=== PATIENT | male | born 1940 | race Caucasian/White ===

== ENCOUNTER 2018-12-17 14:20 | Emergency (ER) | payer OTHER ==
[~2018-12-17] VITALS: Ht 167.6 cm; Wt 76.7 kg
[2018-12-17 14:40] VITALS: BP 162/74
== END 2018-12-17 15:42 | disposition home or self-care (01) ==
LOC: EDBD 14:20 → ER 14:20
DX: S00.83XA Contusion of other part of head, initial encounter (principal); J44.9 Chronic obstructive pulmonary disease, unspecified; V09.9XXA Pedestrian injured in unspecified transport accident, initial encounter; Y93.89 Activity, other specified; Y92.89 Other specified places as the place of occurrence of the external cause; Y99.8 Other external cause status
CPT/HCPCS: 70450

== ENCOUNTER 2021-02-25 07:44 | Emergency (ER) | payer OTHER ==
[~2021-02-25] VITALS: Ht 167.6 cm; Wt 71.2 kg
[2021-02-25 08:57] LABS: Basophils # (auto) 0 10 ^3/uL (0-0.2); Basophils % (auto) 0.4 % (0.0-2.0); Eosinophils # (auto) 0 10 ^3/uL (0-0.8); Hematocrit 40.4 % (41.0-53.0); Hemoglobin 13.8 g/dL (13.5-17.5); Lymphocytes % (auto) 16.1 % (10.0-50.0); Mean Corpuscular Hemoglobin 31.5 pg (28.0-32.0); Mean Corpuscular Hgb Conc. 34.1 g/dL (32.0-36.0); Mean Corpuscular Volume 92.3 fL (80.0-100.0); Monocytes # (auto) 0.7 10 ^3/uL (0-1.3); Monocytes % (auto) 12.4 % (0.0-12.0); Neutrophils # (auto) 4.3 10 ^3/uL (1.6-8.6); Neutrophils % (auto) 71.1 % (37.0-80.0); Nucleated Red Blood Cells % 0.1 %; Red Blood Cells 4.38 10^6/uL (4.5-5.90); Red Cell Distribution Width 13.4 % (11.8-14.3)
[2021-02-25 09:23] LABS: Albumin 3.3 g/dL (3.4-5.0); Anion Gap 6 (5-15); Blood Urea Nitrogen 14 mg/dL (7-18); Calcium 8.5 mg/dL (8.5-10.1); Carbon Dioxide 24 mmol/L (21-32); Chloride 106 mmol/L (98-107); Glucose 100 mg/dL (74-106); Magnesium 2.2 mg/dL (1.6-2.6); Potassium 3.6 mmol/L (3.5-5.1); Sodium 136 mmol/L (136-145)
[2021-02-25 09:29] LABS: Alanine Aminotransferase 27 U/L (16-61); Alkaline Phosphatase 99 U/L (45-117); Aspartate Aminotransferase 39 U/L (15-37); BUN/Creatinine Ratio 14.9; Bilirubin, Total 2.1 mg/dL (0.2-1.0); GFR African American 100 mL/min; GFR Non-African American 82 mL/min; Total Protein 7.9 g/dL (6.4-8.2)
[2021-02-25 10:35] LABS: Urine Bacteria FEW /hpf (None Seen); Urine Blood 1+ /uL (Negative); Urine Mucus FEW (None Seen); Urine Specific Gravity 1.027 (1.001-1.035); Urine WBC 3 /hpf (0 - 3)
[2021-02-25] MEDS ORDERED: IPRATROPIUM BROM 0.5 MG/2.5ML INH SOL NEB ONE (12:00)
[2021-02-25] MEDS ORDERED: ALBUTEROL SULF 2.5 MG/0.5ML(0.5%) NEB SOLN NEB ONE (12:00)
[2021-02-25 13:02] VITALS: BP 115/70
== END 2021-02-25 13:04 | disposition home or self-care (01) ==
LOC: ER 07:44
DX: R91.1 Solitary pulmonary nodule (principal); R05 Cough; I10 Essential (primary) hypertension; J44.9 Chronic obstructive pulmonary disease, unspecified; I25.10 Atherosclerotic heart disease of native coronary artery without angina pectoris; I48.91 Unspecified atrial fibrillation; Z90.49 Acquired absence of other specified parts of digestive tract; Z90.89 Acquired absence of other organs; Z87.891 Personal history of nicotine dependence; Z20.822 Contact with and (suspected) exposure to COVID-19
CPT/HCPCS: 36415; 71045; 80053; 81001; 83735; 83880; 84484; 85025; 87426; 93005; 94640; 99285; J7644

== ENCOUNTER 2024-08-26 05:53 | Inpatient (IN) | payer OTHER ==
[~2024-08-26] VITALS: Ht 167.6 cm; Wt 74.3 kg
[2024-08-26] VITALS (9 sets, daily range): BP systolic 123–152; BP diastolic 59–77; PULSE 56–122; RESP 17–29; TEMP 97.8–97.9; O2SAT 92–98
--- NOTE | 2024-08-26 06:46 | ED.PDOC ---
SOB-HPI HPI Comments 84 year old male brought in by EMS presents to the ED with a chief complaint of shortness of breath onset yesterday. Patient states he began experiencing shortness of breath as well as a productive cough, sore throat and noticed it worsened today. Prior to EMS arrival patient used albuterol inhaler with no relief of symptoms. Upon EMS arrival, patient's O2 sat was 87%, breathing treatment was given, O2 sat improved to 97% and after treatment was done O2 was 89%. Patient was placed on 2L and O2 improved on 91% with a temperature of 99.8 F. PMHx of HTN, COPD, CAD, afib. Denies headache, nausea, vomiting, diarrhea, abdominal pain, dizziness, blurry vision. No other symptoms or modifying factors present at this time. Chief Complaint: Shortness of Breath Time Seen by MD: 06:22 Reviewed notes: Medications, Allergies Information Source: Patient, Emergency Med Personnel Mode of Arrival: EMS Severity: Moderate Timing: Days Duration: Since onset Context: At Rest PE Risk Factors: None History of: COPD Prehospital treatment: Oxygen (2L), Treatment (albuterol) Modifying Factors: Nothing Associated Signs and Symptoms: Cough Radiation: No Radiation If cough with SOB: Productive Past Medical History PAST MEDICAL HISTORY: AFIB, CAD, COPD, HTN Surgical History: Appendectomy, Cholecystectomy, Tonsillectomy Family History Family History: Reviewed,noncontributory to illness Social History Smoker: Non-Smoker, Quit Greater Than 1 Year Alcohol: Denies ETOH Use Drugs: Denies Drug Use Lives In: Home Constitutional: denies: chills, diaphoresis, fatigue, fever, malaise, sweats, weakness, others EENTM: denies: blurred vision, double vision, ear bleeding, ear discharge, ear drainage, ear pain, ear ringing, eye pain, eye redness, hearing loss, mouth pain, mouth swelling, nasal discharge, nose bleeding, nose congestion, nose pain, photophobia, tearing, throat pain, throat swelling, voice changes, others Respiratory: reports: cough, shortness of breath; denies: hemoptysis, orthopnea, SOB at rest, SOB with excertion, stridor, wheezing, others Cardiovascular: reports: others (chest tightness); denies: chest pain, dizzy spells, diaphoresis, Dyspnea on exertion, edema, irregular heart beat, left arm pain, lightheadedness, palpitations, PND, syncope Gastrointestinal: denies: abdomen distended, abdominal pain, blood streaked bowels, constipated, diarrhea, dysphagia, difficulty swallowing, hematemesis, melena, nausea, poor appetite, poor fluid intake, rectal bleeding, rectal pain, vomiting, others Genitourinary: denies: burning, dysuria, flank pain, frequency, hematuria, incontinence, penile discharge, penile sore, pain, testicle pain, testicle swelling, urgency, others Neurological: denies: dizziness, fainting, headache, left sided numbness, left sided weakness, numbness, paresthesia, pre-existing deficit, right sided numbness, right sided weakness, seizure, speech problems, tingling, tremors, weakness, others Musculoskeletal: denies: back pain, gout, joint pain, joint swelling, muscle pain, muscle stiffness, neck pain, others Integumetry: denies: bruises, change in color, change in hair/nails, dryness, laceration, lesions, lumps, rash, wounds, others Allergic/Immunocompromised: denies: Difficulty Healing, Frequent Infections, Hives, Itching, others Hematologic/Lymphatic: denies: anemia, blood clots, easy bleeding, easy bruising, swollen glands, others Endocrine: denies: excessive hunger, excessive sweating, excessive thirst, excessive urination, flushing, intolerance to cold, intolerance to heat, unexplained weight gain, unexplained weight loss, others Psychiatric: denies: anxiety, bipolar disorder, depression, hopeless, panic disorder, schizophrenia, sleepless, suicidal, others All Other Systems: Reviewed and Negative Physical Exam General Appearance: Moderate Distress HEENT: Normal ENT Inspection, Pharynx Normal, TMs Normal Neck: Full Range of Motion, Non-Tender, Normal, Normal Inspection Respiratory: Crackles, Decreased Breath Sounds, Respiratory Distress Cardiovascular: No Edema, No JVD, No Murmur, No Gallop, Normal Peripheral Pulses, Regular Rate/Rhythm Breast Exam: Deferred Gastrointestinal: No Organomegaly, Non Tender, Normal Bowel Sounds, Soft Genitalia: Deferred Pelvic: Deferred Rectal: Deferred Extremities: No calf tenderness, Normal capillary refill, Normal inspection, Normal range of motion, Non-tender, No pedal edema Neurologic: Alert, neon tube pumper II-XII nml as Tested, No Motor Deficits, Normal Affect, Normal Mood, No Sensory Deficits Cerebellar Function: NOT DONE Reflexes: NOT DONE Skin: Dry, Normal Color, Warm Lymphatic: NOT DONE EKG EKG : Ray: Normal Cardiac Rhythm: NSR (120) Comments sinus rhythm with 120 bpm. Atrial flutter. Was a procedure done? Was a procedure done?: No Differential Dx Differential Diagnosis: Anxiety, CHF, COPD, Hypertension, Hyperventilation, Hyponatremia, Myocardial infarction, Panic Attack, Pneumonia, Pneumothorax, Pulmonary Embolism, Respiratory Distress X-Ray, Labs, Meds, VS Vital Signs Date Time Temp Pulse Resp B/P (MAP) Pulse Ox O2 Delivery O2 Flow Rate FiO2 08/26/24 10:16 122 29 92 Nasal Cannula* 3 32 08/26/24 10:15 97.8 08/26/24 08:50 101.8 08/26/24 08:42 134 18 97 Room Air 08/26/24 08:42 101.8 134 18 120/78 (92) 97 101.8 08/26/24 07:44 18 90 Nasal Cannula* 3 32 08/26/24 05:58 120 08/26/24 05:53 99.8 113 20 134/77 (96) 91 Lab Test 08/26/24 10:06 08/26/24 07:59 08/26/24 06:52 Range/Units Influenza Type A Antigen Negative Negative Influenza Type B Antigen Negative Negative Troponin I High Sensitivity 7 8 </=54 ng/L White Blood Count 7.5 4.4-10.8 10^3/uL Red Blood Count 4.41 L 4.5-5.90 10^6/uL Hemoglobin 14.2 13.5-17.5 g/dL Hematocrit 42.0 41.0-53.0 % Mean Corpuscular Volume 95.3 80.0-100.0 fL Mean Corpuscular Hemoglobin 32.1 H 28.0-32.0 pg Mean Corpuscular Hemoglobin Concent 33.7 32.0-36.0 g/dL Red Cell Distribution Width 14.2 11.8-14.3 % Platelet Count 167 140-450 10^3/uL Mean Platelet Volume 8.0 6.9-10.8 fL Neutrophils (%) (Auto) 87.0 H 37.0-80.0 % Lymphocytes (%) (Auto) 6.9 L 10.0-50.0 % Monocytes (%) (Auto) 4.7 0.0-12.0 % Eosinophils (%) (Auto) 1.2 0.0-7.0 % Basophils (%) (Auto) 0.2 0.0-2.0 % Neutrophils # (Auto) 6.6 1.6-8.6 10 ^3/uL Lymphocytes # (Auto) 0.5 0.4-5.4 10 ^3/uL Monocytes # (Auto) 0.4 0-1.3 10 ^3/uL Eosinophils # (Auto) 0.1 0-0.8 10 ^3/uL Basophils # (Auto) 0 0-0.2 10 ^3/uL Nucleated Red Blood Cells 0.1 % Prothrombin Time 11.3 9.3-11.8 sec Prothrombin Time INR 1.07 0.9-1.15 Activated Partial Thromboplast Time 25.7 24.5-34.5 SEC D-Dimer, Quantitative 0.69 H 0.0-0.49 mg/L FEU Sodium Level 140 136-145 mmol/L Potassium Level 3.7 3.5-5.1 mmol/L Chloride Level 104 98-107 mmol/L Carbon Dioxide Level 26 20-31 mmol/L Anion Gap 10 5-15 Blood Urea Nitrogen 13 9-23 mg/dL Creatinine 0.92 0.700-1.30 mg/dL Glomerular Filtration Rate Calc 83 >90 mL/min BUN/Creatinine Ratio 14.1 10.0-20.0 Serum Glucose 106 74-106 mg/dL Calcium Level 9.9 8.7-10.4 mg/dL Magnesium Level 1.7 1.6-2.6 mg/dL Total Bilirubin 2.4 H 0.2-1.0 mg/dL Aspartate Amino Transferase (AST) 31 13-40 U/L Alanine Aminotransferase (ALT) 30 7-40 U/L Alkaline Phosphatase 103 46-116 U/L B-Type Natriuretic Peptide 67.08 0-100 pg/mL Total Protein 7.2 5.7-8.2 g/dL Albumin 4.7 3.2-4.8 g/dL Current Medications Medications (Trade) Dose Ordered Sig/Ryan Route Start Time Stop Time Status Last Admin Methylprednisolone Sodium Succinate (Solu Medrol) 125 mg ONCE ONCE IV 08/26/24 06:45 08/26/24 06:46 DC 08/26/24 08:07 Ipratropium [place] (Atrovent Medneb) 0.5 mg ONCE ONCE NEB 08/26/24 06:45 08/26/24 06:46 DC 08/26/24 07:44 Albuterol (Ventolin Medneb) 5 mg ONCE ONCE NEB 08/26/24 06:45 08/26/24 06:46 DC 08/26/24 07:45 Acetaminophen (Tylenol Tablet) 650 mg ONCE ONCE PO 08/26/24 08:45 08/26/24 08:47 DC 08/26/24 08:50 [place] [address] Ph: [phone] DIAGNOSTIC IMAGING Diagnostic Imaging Report : [id number] Signed PATIENT: JOSE ISLAS ACCT: [id number] UNIT: [id number] : 1940 LOC: ER ROOM / BED: / AGE / SEX: 84 / M ADM STATUS: REG ER SERVICE 8 ORDERING PHYSICIAN: JANETT WHATLEY MD PROCEDURE(s): CXRP - CHEST PORTABLE REASON: cough ORDER NUMBER(s): [id number], ACCESSION NUMBER(s): [id number] CHEST RADIOGRAPH Indication: cough Technique: Single frontal view of the chest was obtained COMPARISON: CHEST PORTABLE on DOS: 02/25/21 FINDINGS: Lines and Tubes: None Lungs: Clear Pleura: No effusion. No pneumothorax. Cardiomediastinal contours: Unremarkable Bones: Unremarkable IMPRESSION: No acute disease. ATED BY: TONY OLSON MD DICTATED DATE/TIME: 08/26/24820 SIGNED BY: TONY OLSON MD SIGNED DATE/TIME: 08/26/24820 CC: X-Ray, Labs, Meds, VS Comment This 84-year-old unwell appearing male presents secondary to increasing hypoxia and dyspnea. Per EMS, his O2 saturation was in the 80s in the field. Had such an improvement with the 1st breathing treatment. However, oxygen saturation began to decrease back to the high 80s low 90s. Here, his workup was relatively benign terms of Radiology and last. However, the patient continues to have oxygen demand. With his novel. As such, secondary to his hypoxia and dyspnea, the patient will be admitted for further workup and management. Time of 1ST Reevaluation: 06:52 Reevaluation 1ST: Unchanged Time of 2ND Reevaluation: 12:00 Reevaluation 2ND: Unchanged Patient Education/Counseling: Diagnosis, Treatment, Prognosis Family Education/Counseling: No Family Present Additional Information The following tests were ordered, and results were reviewed by me:EKG, TROP -x3, CBC, CMP, BNP, PTPTT, D-DIMER, XY CHEST, UA, MAGNESIUM Additional Information was gathered from interviewing the following independent historians: EMS I reviewed and agreed with the following test results read by other providers: XY CHEST I discussed treatment and results with medical personnel and patient Departure 1 Departure Time of Disposition: 12:00 Impression: Primary Impression: Hypoxia Additional Impression: Dyspnea Disposition: ADMITTED INPATIENT Admit to: Tele Condition: Serious Critical Care Note Critical Care Time?: No Stability Stability form required: No Heart Score Heart Score: Heart Score Response (Comments) Value History Moderate Suspicious 1 EKG Repolarization Disturb 1 Age >65 2 Risk Factors >3 or Hx ASHD 2 Troponin Normal limit 0 Total 6 I personally scribed for JANETT WHATLEY MD ([email or web address]) on 08/26/24 at 06:46. Electronically submitted by Daniella Cortez ([email or web address]). I personally scribed for JANETT WHATLEY MD ([email or web address]) on 08/26/24 at 07:15. Electronically submitted by Daniella Cortez ([email or web address]). I personally scribed for JANETT WHATLEY MD ([email or web address]) on 08/26/24 at 08:36. Electronically submitted by Daniella Cortez ([email or web address]). I personally scribed for JANETT WHATLEY MD ([email or web address]) on 08/26/24 at 08:37. Electronically submitted by Daniella Cortez ([email or web address]). I personally scribed for JANETT WHATLEY MD ([email or web address]) on 08/26/24 at 09:09. Electronically submitted by Daniella Cortez ([email or web address]). JANETT WHATLEY MD Aug 26, 2024 06:46
--- NOTE | 2024-08-26 06:51 | ECG ---
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
[2024-08-26 07:19] LABS: Basophils # (auto) 0 10 ^3/uL (0-0.2); Basophils % (auto) 0.2 % (0.0-2.0); Eosinophils # (auto) 0.1 10 ^3/uL (0-0.8); Eosinophils % (auto) 1.2 % (0.0-7.0); Hemoglobin 14.2 g/dL (13.5-17.5); Lymphocytes # (auto) 0.5 10 ^3/uL (0.4-5.4); Lymphocytes % (auto) 6.9 % (10.0-50.0); Mean Corpuscular Hemoglobin 32.1 pg (28.0-32.0); Mean Corpuscular Hgb Conc. 33.7 g/dL (32.0-36.0); Mean Corpuscular Volume 95.3 fL (80.0-100.0); Monocytes # (auto) 0.4 10 ^3/uL (0-1.3); Monocytes % (auto) 4.7 % (0.0-12.0); Neutrophils # (auto) 6.6 10 ^3/uL (1.6-8.6); Nucleated Red Blood Cells % 0.1 %; Platelet Count (auto) 167 10^3/uL (140-450); Red Blood Cells 4.41 10^6/uL (4.5-5.90); Red Cell Distribution Width 14.2 % (11.8-14.3); White Blood Cell 7.5 10^3/uL (4.4-10.8)
[2024-08-26 07:32] LABS: INR 1.07 (0.9-1.15); Partial Thromboplastin Time 25.7 SEC (24.5-34.5); Prothrombin Time 11.3 sec (9.3-11.8)
[2024-08-26 07:34] LABS: Alanine Aminotransferase 30 U/L (7-40); Albumin 4.7 g/dL (3.2-4.8); Alkaline Phosphatase 103 U/L (46-116); Anion Gap 10 (5-15); Aspartate Aminotransferase 31 U/L (13-40); Calcium 9.9 mg/dL (8.7-10.4); Carbon Dioxide 26 mmol/L (20-31); Chloride 104 mmol/L (98-107); Glucose 106 mg/dL (74-106); Magnesium 1.7 mg/dL (1.6-2.6); Potassium 3.7 mmol/L (3.5-5.1); Sodium 140 mmol/L (136-145)
[2024-08-26 07:35] LABS: Bilirubin, Total 2.4 mg/dL (0.2-1.0); Total Protein 7.2 g/dL (5.7-8.2)
[2024-08-26 07:36] LABS: BUN/Creatinine Ratio 14.1 (10.0-20.0); Blood Urea Nitrogen 13 mg/dL (9-23)
[2024-08-26] MEDS: IPRATROPIUM BROM 0.5 MG/2.5ML INH SOL NEB ONE (07:44)
[2024-08-26] MEDS: ALBUTEROL SULF 2.5 MG/0.5ML(0.5%) NEB SOLN NEB ONE (07:45)
[2024-08-26] MEDS: methylPREDNISolone SOD SUCC 125 MG/2 ML VL IV ONE (08:07)
--- NOTE | 2024-08-26 08:24 | DVH ---
CHEST RADIOGRAPH Indication: cough Technique: Single frontal view of the chest was obtained COMPARISON: CHEST PORTABLE on DOS: 02/25/21 FINDINGS: Lines and Tubes: None Lungs: Clear Pleura: No effusion. No pneumothorax. Cardiomediastinal contours: Unremarkable Bones: Unremarkable IMPRESSION: No acute disease.
[2024-08-26] MEDS: ACETAMINOPHEN 325 MG TAB PO ONE (08:50)
--- NOTE | 2024-08-26 11:26 | DVHHP2 ---
History of Present Illness Reason for Visit: SOB History of Present Illness Noe Alberto is an 84-year-old male with past medical history of chronic back and hip pain, hypertension, COPD, AFib, TN status post PTCA times for over 7 years ago at [facility], appendectomy, cholecystectomy, and tonsillectomy who presents to the ED with shortness of breath, cough, and sore throat with yellow sputum production x1 day. Patient reports that he is currently getting Eligard shots for his prostate cancer with [facility]. Patient's caregiver stated that he became more short of breath which is why she prompted an ED evaluation. Patient reports that he does not use oxygen at home. Patient does report that he sees a medicine worker regularly. Patient denies any chest pain, abdominal pain, nausea, vomiting, diarrhea, , chills, lightheadedness, weakness, and dizziness. Cardiovascular: AFIB, TN Pulmonary: COPD Past Medical History Prostate cancer Past Surgical History: Appendectomy, Cholecystectomy, CABG, Tonsillectomy Family History: None Smoke: Quit ALCOHOL: occassional Drugs: Marijuana, Other (Edibles) Lives: Alone Domestic Violence: Neg Review of Systems Constitutional: No: Fever, Chills, Sweats, Weakness, Malaise, Other Eyes: No: Pain, Vision change, Conjunctivae inflammation, Eyelid inflammation, Other, Redness ENT: Throat pain; No: Ear pain, Ear discharge, Nose pain, Nose discharge, Nose congestion, Mouth pain, Mouth swelling, Throat swelling, Other Respiratory: Cough, Shortness of breath, Sputum; No: Dry, SOB with excertion, Wheezing, Hemoptysis, Pleuritic Pain, Wheezing, Other Cardiovascular: No: Chest Pain, Palpitations, Orthopnea, Paroxysmal Noc. Dyspnea, Edema, Lt Headedness, Other Gastrointestinal: No: Nausea, Vomiting, Abdominal Pain, Diarrhea, Constipation, Melena, Hematochezia, Other Genitourinary: No Dysuria, No Frequency, No Incontinence, No Hematuria, No Retention, No Other Musculoskeletal: No: other, neck pain, shoulder pain, arm pain, back pain, hand pain, leg pain, foot pain Skin: No: Rash, Lesions, Jaundice, Bruising, Other Neurological: No: Weakness, Numbness, Incoordination, Change in speech, Confusion, Seizures, Other Allergies: Coded Allergies: NO KNOWN ALLERGIES (Unverified , 12/17/18) Medications Current Medications Medications Dose Ordered Sig/Ryan Route Start Time Stop Time Status Last Admin Dose Admin Levalbuterol HCl 1.25 mg Q6HR NEB 08/26/24 12:00 UNV Ipratropium [place] 0.5 mg Q6HR NEB 08/26/24 12:00 UNV Exam Vital Signs Vital Signs Date Time Temp Pulse Resp B/P (MAP) Pulse Ox O2 Delivery O2 Flow Rate FiO2 08/26/24 10:16 122 29 92 Nasal Cannula* 3 32 08/26/24 10:15 97.8 08/26/24 08:42 120/78 (92) General Appearance: Alert, Oriented X3, Cooperative, No acute distress HEENT: Atraumatic, PERRLA, EOMI, Mucous membr. moist/pink Respiratory: Normal air movement Cardiovascular: Normal S1, Normal S2, No murmurs Abdominal: Normal bowel sounds, Soft, No tenderness, No hepatospenomegaly, No masses Extremities: No clubbing, No cyanosis, No edema, Normal pulses, No tenderness/swelling Skin: No rashes, No breakdown, No significant lesion Neuro: Normal gait, Normal speech, Strength at 5/5 X4 ext, Normal tone, Sensation intact Psych/Mental Status: Mental status NL, Mood NL Labs/Xrays Labs Test 08/26/24 10:06 08/26/24 07:59 08/26/24 06:52 Range/Units Troponin I High Sensitivity 7 </=54 ng/L White Blood Count 7.5 4.4-10.8 10^3/uL Red Blood Count 4.41 L 4.5-5.90 10^6/uL Hemoglobin 14.2 13.5-17.5 g/dL Hematocrit 42.0 41.0-53.0 % Mean Corpuscular Volume 95.3 80.0-100.0 fL Mean Corpuscular Hemoglobin 32.1 H 28.0-32.0 pg Mean Corpuscular Hemoglobin Concent 33.7 32.0-36.0 g/dL Red Cell Distribution Width 14.2 11.8-14.3 % Platelet Count 167 140-450 10^3/uL Mean Platelet Volume 8.0 6.9-10.8 fL Neutrophils (%) (Auto) 87.0 H 37.0-80.0 % Lymphocytes (%) (Auto) 6.9 L 10.0-50.0 % Monocytes (%) (Auto) 4.7 0.0-12.0 % Eosinophils (%) (Auto) 1.2 0.0-7.0 % Basophils (%) (Auto) 0.2 0.0-2.0 % Neutrophils # (Auto) 6.6 1.6-8.6 10 ^3/uL Lymphocytes # (Auto) 0.5 0.4-5.4 10 ^3/uL Monocytes # (Auto) 0.4 0-1.3 10 ^3/uL Eosinophils # (Auto) 0.1 0-0.8 10 ^3/uL Basophils # (Auto) 0 0-0.2 10 ^3/uL Nucleated Red Blood Cells 0.1 % Prothrombin Time 11.3 9.3-11.8 sec Prothrombin Time INR 1.07 0.9-1.15 Activated Partial Thromboplast Time 25.7 24.5-34.5 SEC D-Dimer, Quantitative 0.69 H 0.0-0.49 mg/L FEU Sodium Level 140 136-145 mmol/L Potassium Level 3.7 3.5-5.1 mmol/L Chloride Level 104 98-107 mmol/L Carbon Dioxide Level 26 20-31 mmol/L Anion Gap 10 5-15 Blood Urea Nitrogen 13 9-23 mg/dL Creatinine 0.92 0.700-1.30 mg/dL Glomerular Filtration Rate Calc 83 >90 mL/min BUN/Creatinine Ratio 14.1 10.0-20.0 Serum Glucose 106 74-106 mg/dL Calcium Level 9.9 8.7-10.4 mg/dL Magnesium Level 1.7 1.6-2.6 mg/dL Total Bilirubin 2.4 H 0.2-1.0 mg/dL Aspartate Amino Transferase (AST) 31 13-40 U/L Alanine Aminotransferase (ALT) 30 7-40 U/L Alkaline Phosphatase 103 46-116 U/L B-Type Natriuretic Peptide 67.08 0-100 pg/mL Total Protein 7.2 5.7-8.2 g/dL Albumin 4.7 3.2-4.8 g/dL CHEST RADIOGRAPH Indication: cough Technique: Single frontal view of the chest was obtained COMPARISON: CHEST PORTABLE on DOS: 02/25/21 FINDINGS: Lines and Tubes: None Lungs: Clear Pleura: No effusion. No pneumothorax. Cardiomediastinal contours: Unremarkable Bones: Unremarkable IMPRESSION: No acute disease. Assessment/Plan Assessment/Plan Assessment/plan: Acute on chronic respiratory failure likely due to COPD exacerbation Hyperbilirubinemia Labs EKG Flu test Respiratory treatments Antipyretics IV steroids Troponin negative x2 Mag level UA Chest x-ray noted D-dimer PT/PTT BNP Supportive oxygen PPI A.m. labs AFib with RVR Medication management Tele monitor Rounding team to decide if Cardiology consult if no improvement Chronic back pain Chronic hip pain Follow up outpatient with PCP Chronic hypertension Continue home medications FEN/PPX Diet IV fluids DVT prophylaxis not indicated patient ambulating PUD prophylaxis-no history of GERD or GI bleed Discussed plan of care with patient, patient's caregiver and nurse Home medications reconciled Admit to telemetry Plan discussed with: Patient, Other (Caregiver) My Orders Orders - BRANDON COLLINS [employer] ATTENDANT Procedure Category Date Status Time Levalbuterol Hcl PHA 08/26/24 Logged (Xopenex Medneb) 12:00 Ipratropium Medneb LOCATED WITH[facility] 08/26/24 Logged (Atrovent Medneb) 12:00 Admit ADMIT 08/26/24 Verified 11:17 Code Status CODE 08/26/24 Verified 11:17 Vital Signs [facility] 08/26/24 Verified 11:17 Cloth Mender [facility] 08/26/24 Verified 11:17 Cardiac DIET 08/26/24 Verified Diet-2gna,Lofat,Lochol Lunch Acetaminophen Tablet [facility] 08/26/24 Verified (Tylenol Tablet) 11:30 Complete Blood Count LAB 08/27/24 Verified 04:00 Comprehensive LAB 08/27/24 Verified Metabolic Panel 04:00 Ondansetron Hcl [facility] 08/26/24 Verified (Zofran) 11:30 Electrocardigram EKG 08/27/24 Verified 04:00 Troponin-I Hs LAB 08/26/24 Verified 11:17 Cardiac [facility] 08/26/24 Verified Rehabilitation - Outpa Nitroglycerin [facility] 08/26/24 Verified Sublingual (Ntrostat 11:30 Morphine Sulfate [facility] 08/26/24 Verified Injection 11:30 Stat Ekg For Chest [facility] 08/26/24 Verified Pain 11:17 Notify Md Of Changes [facility] 08/26/24 Verified From Base 11:17 Fur Grader For [facility] 08/26/24 Verified 24 Hours 11:17 Emergency Dysrhythmia [facility] 08/26/24 Verified Protocol 11:17 Rhythm Strips Once [facility] 08/26/24 Verified Every Shift 11:17 Oxygen By Nasal RT 08/26/24 Verified Cannula 11:17 Date of Service: Aug 26, 2024 Billing Provider: BRANDON COLLINS Common Visit Codes: [id number] INP/OBS CARE (HIGH) BRANDON COLLINS Aug 26, 2024 11:26
[2024-08-26] MEDS ORDERED: ONDANSETRON HCL 4 MG/2 ML VIAL IV PRN (11:30)
[2024-08-26] MEDS ORDERED: NITROGLYCERIN 0.4 MG SL TAB SL PRN (11:30)
[2024-08-26] MEDS ORDERED: MORPHINE SULFATE INJ 2 MG/ml SYRG IV PRN (11:30)
[2024-08-26] MEDS: IPRATROPIUM BROM 0.5 MG/2.5ML INH SOL NEB SCH (11:36)
[2024-08-26] MEDS: LEVALBUTEROL HCL 1.25 MG/3 ML NEB NEB SCH (11:37)
[2024-08-26 11:39] LABS: Rapid Influenza A Negative (Negative); Rapid Influenza B Negative (Negative)
[2024-08-26] MEDS: cefTRIAXone 1GM/50ML D5W 50 ML IV ONE (12:32)
[2024-08-26] MEDS: SODIUM CHLORIDE 0.9% 1,000 ML IV SCH (12:32)
[2024-08-26] MEDS ORDERED: TAMS0.4C39 (12:38)
[2024-08-26] MEDS ORDERED: TEMA30CA (12:38)
[2024-08-26] MEDS ORDERED: SILD100T79 PO (12:38)
[2024-08-26] MEDS ORDERED: ATOR40TA52 (12:38)
[2024-08-26] MEDS ORDERED: AMLO1TAB22 (12:38)
[2024-08-26] MEDS ORDERED: MET25T (12:38)
[2024-08-26] MEDS: AZITHROMYCIN 500MG/ 250ML 250 ML IV ONE (13:40)
[2024-08-26] MEDS ORDERED: methylPREDNISolone SOD SUCC 125 MG/2 ML VL IV SCH (14:00)
[2024-08-26] MEDS: methylPREDNISolone SOD SUCC 125 MG/2 ML VL IV SCH (15:47)
--- NOTE | 2024-08-26 15:48 | DVHSR ---
APPROVED REPORT EXAM: LIMITED Two-dimensional and M-mode echocardiogram with Doppler and color Doppler. Blood Pressure: 120/78 mmHg INDICATION SOB PTCA with 4 stents RISK FACTORS Height: 5'6, Weight: 160 DIMENSIONS LVDd (3.8-5.7cm)LA (2D)4.0 (1.9-4.0cm)Aortic Root4.0 (2.0-3.7cm) LVDs (2.5-4.0cm)LA (MM) (1.9-4.0cm)Aortic Cusp Exc1.5 (1.5-2.0cm) EF (%) 55.0 (55-70%)Rt. Atrium (1.9-4.0cm)Asc. Aorta cm Mitral Valve MitralMitral Stenosis E wave0.70m/sMV Mean GR.mmHg A wave0.98m/sMV Peak GR.mmHg E/A ratio0.72D MVAcm2 DECEL [id number] 1/2 Tim[place] Aortic Valve Aortic ValveAortic Stenosis V11.24m/Mehdi Mean GR.mmHg LVOT Diameter2.5 (1.8-2.4cm)Doppler AVA0.00cm2 LEFT VENTRICLE The left ventricle is not well visualized. Not well visualized but looks grossly normal, LVEF is 55% RIGHT VENTRICLE The right ventricle is not well visualized. ATRIA The left atrial size is normal. The right atrium is not well visualized. MITRAL VALVE The mitral valve is grossly normal. There is no mitral valve regurgitation noted. PULMONIC VALVE The pulmonic valve is not well visualized. TRICUSPID VALVE The tricuspid valve is not well visualized. AORTIC VALVE The aortic valve is mildly sclerotic. No aortic regurgitation is present. GREAT VESSELS There is mild aortic root dilatation. PERICARDIAL EFFUSION No evidence of pericardial effusion. Other Information Quality : Technically LimitedRhythm : Technically limited study due to body habitus.patient position. Conclusion Not well visualized but looks grossly normal, LVEF is 55% The left atrial size is normal. There is mild aortic root dilatation. No evidence of pericardial effusion.
[2024-08-26] MEDS ORDERED: TRAM50TA2 PO (17:30)
[2024-08-26] MEDS ORDERED: CLOP75TA70 PO (17:30)
[2024-08-26] MEDS ORDERED: HYDR-3682 PO (17:30)
[2024-08-26] MEDS ORDERED: OMEP20TA PO (17:30)
[2024-08-26] MEDS ORDERED: TAMS0.4C39 PO (17:30)
[2024-08-26] MEDS ORDERED: TEMA30CA PO (17:30)
[2024-08-26] MEDS ORDERED: ALBU2TAB11 NEB (17:30)
[2024-08-26] MEDS ORDERED: LISI-275 PO (17:30)
[2024-08-26] MEDS: BUDESONIDE (INHALATION) 0.5 MG/2 ML NEB NEB SCH (18:35)
[2024-08-26 21:12] LABS: Urine Bacteria None Seen /hpf (None Seen)
[2024-08-26 21:35] LABS: Urine Blood Negative /uL (Negative); Urine Clarity Clear (Clear); Urine Color Light-Yellow (Yellow); Urine Mucus FEW (None Seen); Urine Protein, UAD TRACE (Negative); Urine Specific Gravity 1.015 (1.001-1.035); Urine Squamous Epithelial Cell None Seen /hpf (<5); Urine Urobilinogen Normal (Negative); Urine WBC 1 /HPF (0-3)
[2024-08-27] VITALS (20 sets, daily range): BP systolic 142–163; BP diastolic 64–88; PULSE 62–119; RESP 16–25; TEMP 97.7–98.6; O2SAT 91–98
[2024-08-27] MEDS: ACETAMINOPHEN 325 MG TAB PO PRN (00:55)
[2024-08-27 06:13] LABS: Basophils # (auto) 0 10 ^3/uL (0-0.2); Basophils % (auto) 0.1 % (0.0-2.0); Eosinophils # (auto) 0 10 ^3/uL (0-0.8); Hematocrit 37.2 % (41.0-53.0); Hemoglobin 12.8 g/dL (13.5-17.5); Lymphocytes # (auto) 0.2 10 ^3/uL (0.4-5.4); Lymphocytes % (auto) 2.5 % (10.0-50.0); Mean Corpuscular Hemoglobin 32.4 pg (28.0-32.0); Mean Corpuscular Hgb Conc. 34.3 g/dL (32.0-36.0); Mean Corpuscular Volume 94.4 fL (80.0-100.0); Monocytes # (auto) 0.2 10 ^3/uL (0-1.3); Monocytes % (auto) 2.4 % (0.0-12.0); Nucleated Red Blood Cells % 0.1 %; Platelet Count (auto) 149 10^3/uL (140-450); Red Blood Cells 3.94 10^6/uL (4.5-5.90); Red Cell Distribution Width 14.1 % (11.8-14.3); White Blood Cell 8.4 10^3/uL (4.4-10.8)
[2024-08-27 06:44] LABS: Alanine Aminotransferase 24 U/L (7-40); Alkaline Phosphatase 81 U/L (46-116); Anion Gap 11 (5-15); Aspartate Aminotransferase 26 U/L (13-40); BUN/Creatinine Ratio 14.1 (10.0-20.0); Blood Urea Nitrogen 11 mg/dL (9-23); Calcium 10.2 mg/dL (8.7-10.4); Carbon Dioxide 23 mmol/L (20-31); Chloride 104 mmol/L (98-107); Potassium 3.8 mmol/L (3.5-5.1); Sodium 138 mmol/L (136-145); Total Protein 6.7 g/dL (5.7-8.2)
[2024-08-27 06:48] LABS: Bilirubin, Total 1.3 mg/dL (0.2-1.0); Glucose 137 mg/dL (74-106)
[2024-08-27] MEDS: cefTRIAXone 1GM/50ML D5W 50 ML IV SCH (09:29)
[2024-08-27] MEDS: FAMOTIDINE (10MG/ML) 2ML VL IV SCH (09:29)
[2024-08-27] MEDS: AZITHROMYCIN 500MG/ 250ML 250 ML IV SCH (10:27)
[2024-08-27] MEDS: hydrALAZINE HCL 20 MG/ML VL IV PRN (12:16)
--- NOTE | 2024-08-27 14:51 | DVHPN2 ---
Subjective Patient seen and examined at bedside. Complain of shortness for breath. Reviewed: Care Plan, H&P, Labs, Medications, Previous Orders, Radiology Changes from previous H/P or p: No Changes Eyes: No Pain, No Vision change, No Conjunctivae inflammation, No Eyelid inflammation, No Other, No Redness ENT: No Ear pain, No Ear discharge, No Nose pain, No Nose discharge, No Nose congestion, No Mouth pain, No Mouth swelling; Throat pain; No Throat swelling, No Other Cardiovascular: No Chest Pain, No Palpitations, No Orthopnea, No Paroxysmal Noc. Dyspnea, No Edema, No Lt Headedness, No Other Respiratory: Cough; No Dry; Shortness of breath; No SOB with excertion, No Wheezing, No Hemoptysis, No Pleuritic Pain; Sputum; No Other Gastrointestinal: No Nausea, No Vomiting, No Abdominal Pain, No Diarrhea, No Constipation, No Melena, No Hematochezia, No Other Genitourinary: No Dysuria, No Frequency, No Incontinence, No Hematuria, No Retention, No Other Musculoskeletal: No other, No neck pain, No shoulder pain, No arm pain, No back pain, No hand pain, No leg pain, No foot pain Skin: No Rash, No Lesions, No Jaundice, No Bruising, No Other Objective Vitals Vital Signs Date Time Temp Pulse Resp B/P (MAP) Pulse Ox O2 Delivery O2 Flow Rate FiO2 08/27/24 13:43 78 18 98 08/27/24 13:38 Nasal Cannula* 3 32 08/27/24 13:00 98.2 163/75 (104) 98.2 Intake/Output Intake and Output 08/27/24 07:00 Intake Total 1545 ml Balance 1545 ml Intake Oral 1170 ml IV Total 375 ml # Voids 6 # Bowel Movements 1 General Appearance: Alert, Cooperative, No acute distress HEENT: Atraumatic, PERRLA, EOMI, Mucous membr. moist/pink Neck: Supple Lungs: Clear to auscultation, Normal air movement Cardiovascular: Regular rate, Normal S1, Normal S2, No murmurs, Gallops, Rubs Abdomen: Normal bowel sounds, Soft, No tenderness Neuro: Cranial nerves 3-12 NL Psych/Mental Status: Mental status NL Medications Current Medications Medications Dose Ordered Sig/Ryan Route Start Time Stop Time Status Last Admin Dose Admin Levalbuterol HCl 1.25 mg Q6HR NEB 08/26/24 12:00 08/27/24 13:38 1.25 MG Ipratropium [place] 0.5 mg Q6HR NEB 08/26/24 12:00 08/27/24 13:38 0.5 MG Acetaminophen 650 mg Q6HP PRN PO 08/26/24 11:30 08/27/24 00:55 650 MG Ondansetron HCl 4 mg Q4HP PRN IV 08/26/24 11:30 Nitroglycerin 0.4 mg Q5MINP PRN SL 08/26/24 11:30 Morphine Sulfate 2 mg Q30M PRN IV 08/26/24 11:30 Sodium Chloride 1,000 ml @ 75 mls/hr [id number] IV 08/26/24 12:15 08/27/24 14:50 75 MLS/HR Ceftriaxone Sodium 50 ml @ 100 mls/hr DAILY@09 IV 08/27/24 09:00 08/27/24 09:29 100 MLS/HR Azithromycin 250 ml @ 125 mls/hr DAILY IV 08/27/24 10:00 08/27/24 10:27 125 MLS/HR Famotidine 20 mg DAILY IV 08/27/24 10:00 08/27/24 09:29 20 MG Budesonide 0.5 mg BID NEB 08/26/24 22:00 08/27/24 08:11 0.5 MG Methylprednisolone Sodium Succinate 80 mg Q8H IV 08/26/24 16:00 08/27/24 09:29 80 MG Hydralazine HCl 10 mg Q6HP PRN IV 08/27/24 12:15 08/27/24 12:16 10 MG Laboratory Results Laboratory Tests 08/27/24 05:04 Chemistry Test 08/27/24 05:04 Albumin 4.0 g/dL (3.2-4.8) Calcium Level 10.2 mg/dL (8.7-10.4) Total Protein 6.7 g/dL (5.7-8.2) LFT Test 08/27/24 05:04 Alanine Aminotransferase (ALT) 24 U/L (7-40) Alkaline Phosphatase 81 U/L (46-116) Aspartate Amino Transferase (AST) 26 U/L (13-40) Total Bilirubin 1.3 mg/dL (0.2-1.0) H Urinalysis Test 08/26/24 20:55 Urine Color Light-yellow (Yellow) Urine Clarity Clear (Clear) Urine pH 5.0 (5.0-9.0) Urine Specific [place] 1.015 (1.001-1.035) Urine Protein Trace (Negative) H Urine Ketones Negative (Negative) Urine Blood Negative /uL (Negative) Urine Nitrite Negative (Negative) Urine Bilirubin Negative (Negative) Urine Urobilinogen Normal mg/dL (Negative) Urine Leukocyte Esterase Negative /uL (Negative) Urine RBC 1 /hpf (0 - 3) Urine Microscopic WBC 1 /HPF (0-3) Urine Squamous Epithelial Cells None seen /hpf (<5) Urine Bacteria None seen /hpf (None Seen) Urine Mucus Few (None Seen) Urine Glucose Normal mg/dL (Normal) Labs and/or images reviewed: Labs reviewed by me Assessment/Plan Assessment/Plan Acute on chronic respiratory failure likely due to COPD exacerbation Hyperbilirubinemia AFib with RVR Chronic back pain Chronic hip pain Chronic hypertension Plan: Continuing current management. Continuing with nebulizer. Continuing with IV Solu-Medrol Continuing With IV antibiotic Rocephin. Discharge planning. Discussed with patient and caregiver at bedside regarding to plan of care. This medical document was created using an electronic medical record system with [employer] direct computerized dictation system. Although this document has been carefully reviewed, there may still be some phonetic and typographical errors. These areas are purely typographical due to imperfections of the software programs, and do not reflect any compromise in the patient's medical care. Plan discussed with: Patient My Orders Orders - CELIO CAGLE MD Procedure Category Date Status Time Hydralazine Injection PHA 08/27/24 In Process (Apresoline Inject 12:15 Date of Service: Aug 27, 2024 Billing Provider: CELIO CAGLE MD Common Visit Codes: [id number] INP/OBS CARE(HIGH) CELIO CAGLE MD Aug 27, 2024 14:51
[2024-08-27] MEDS: TEMAZEPAM 15 MG CAP PO PRN (22:18)
[2024-08-27] MEDS: ATORVASTATIN 20 MG TAB PO SCH (22:19)
[2024-08-27] MEDS: METOPROLOL TARTRATE 25 MG TAB PO SCH (22:19)
[2024-08-28] VITALS (14 sets, daily range): BP systolic 128–159; BP diastolic 66–80; PULSE 64–89; RESP 15–19; TEMP 97.4–98.1; O2SAT 93–98
[2024-08-28] MEDS: traMADol HCL 50 MG TAB PO SCH (10:37)
[2024-08-28] MEDS: TAMSULOSIN HYDROCHLORIDE 0.4 MG CAP PO SCH (10:37)
[2024-08-28] MEDS: PANTOPRAZOLE 40 MG TAB PO SCH (10:37)
[2024-08-28] MEDS: CLOPIDOGREL BISULFATE 75 MG TAB PO SCH (10:37)
[2024-08-28] MEDS: LISINOPRIL 5 MG TAB PO SCH (10:40)
[2024-08-28] MEDS: amLODIPine BESYLATE 5 MG TAB PO SCH (10:40)
[2024-08-28] MEDS: hydrOXYzine 25 MG TAB or CAP PO PRN (22:03)
--- NOTE | 2024-08-28 23:39 | DVHPN2 ---
Subjective The patient is seen and examined at bedside. Still have some shortness for breath. Reviewed: Care Plan, H&P, Labs, Medications, Previous Orders, Radiology Changes from previous H/P or p: No Changes Eyes: No Pain, No Vision change, No Conjunctivae inflammation, No Eyelid inflammation, No Other, No Redness ENT: No Ear pain, No Ear discharge, No Nose pain, No Nose discharge, No Nose congestion, No Mouth pain, No Mouth swelling; Throat pain; No Throat swelling, No Other Cardiovascular: No Chest Pain, No Palpitations, No Orthopnea, No Paroxysmal Noc. Dyspnea, No Edema, No Lt Headedness, No Other Respiratory: Cough; No Dry; Shortness of breath; No SOB with excertion, No Wheezing, No Hemoptysis, No Pleuritic Pain; Sputum; No Other Gastrointestinal: No Nausea, No Vomiting, No Abdominal Pain, No Diarrhea, No Constipation, No Melena, No Hematochezia, No Other Genitourinary: No Dysuria, No Frequency, No Incontinence, No Hematuria, No Retention, No Other Musculoskeletal: No other, No neck pain, No shoulder pain, No arm pain, No back pain, No hand pain, No leg pain, No foot pain Skin: No Rash, No Lesions, No Jaundice, No Bruising, No Other Objective Vitals Vital Signs Date Time Temp Pulse Resp B/P (MAP) Pulse Ox O2 Delivery O2 Flow Rate FiO2 08/28/24 22:02 70 153/66 08/28/24 21:00 97.6 18 93 97.6 08/28/24 11:42 Room Air 08/28/24 11:42 0 21 Intake/Output Intake and Output 08/28/24 07:00 Intake Total 2700 ml Balance 2700 ml Intake Oral 2400 ml IV Total 300 ml # Voids 10 # Bowel Movements 3 General Appearance: Alert, Cooperative, No acute distress HEENT: Atraumatic, PERRLA, EOMI, Mucous membr. moist/pink Lungs: Clear to auscultation, Normal air movement Cardiovascular: Regular rate, Normal S1, Normal S2, No murmurs, Gallops, Rubs Neuro: Cranial nerves 3-12 NL Medications Current Medications Medications Dose Ordered Sig/Ryan Route Start Time Stop Time Status Last Admin Dose Admin Levalbuterol HCl 1.25 mg Q6HR NEB 08/26/24 12:00 08/28/24 18:35 1.25 MG Ipratropium [place] 0.5 mg Q6HR NEB 08/26/24 12:00 08/28/24 18:35 0.5 MG Acetaminophen 650 mg Q6HP PRN PO 08/26/24 11:30 08/28/24 22:07 650 MG Ondansetron HCl 4 mg Q4HP PRN IV 08/26/24 11:30 Nitroglycerin 0.4 mg Q5MINP PRN SL 08/26/24 11:30 Morphine Sulfate 2 mg Q30M PRN IV 08/26/24 11:30 Sodium Chloride 1,000 ml @ 75 mls/hr [id number] IV 08/26/24 12:15 08/28/24 17:35 75 MLS/HR Ceftriaxone Sodium 50 ml @ 100 mls/hr DAILY@09 IV 08/27/24 09:00 08/28/24 08:12 100 MLS/HR Azithromycin 250 ml @ 125 mls/hr DAILY IV 08/27/24 10:00 08/28/24 10:00 125 MLS/HR Famotidine 20 mg DAILY IV 08/27/24 10:00 08/28/24 10:36 20 MG Budesonide 0.5 mg BID NEB 08/26/24 22:00 08/28/24 18:35 0.5 MG Methylprednisolone Sodium Succinate 80 mg Q8H IV 08/26/24 16:00 08/28/24 15:44 80 MG Hydralazine HCl 10 mg Q6HP PRN IV 08/27/24 12:15 08/27/24 12:16 10 MG Amlodipine Besylate 5 mg DAILY PO 08/28/24 10:00 08/28/24 10:40 5 MG Clopidogrel Bisulfate 75 mg DAILY PO 08/28/24 10:00 08/28/24 10:37 75 MG Lisinopril 5 mg DAILY PO 08/28/24 10:00 08/28/24 10:40 5 MG Metoprolol Tartrate 25 mg BID PO 08/27/24 22:00 08/28/24 22:02 25 MG Tamsulosin HCl 0.4 mg DAILY PO 08/28/24 10:00 08/28/24 10:37 0.4 MG Tramadol HCl 50 mg DAILY PO 08/28/24 10:00 08/28/24 10:37 50 MG Hydroxyzine [place] 25 mg HS PRN PO 08/27/24 22:00 08/28/24 22:03 25 MG Pantoprazole Sodium 40 mg DAILY PO 08/28/24 10:00 08/28/24 10:37 40 MG Temazepam 30 mg QHSP PRN PO 08/27/24 22:00 08/27/24 22:18 30 MG Atorvastatin Calcium 10 mg HS PO 08/27/24 22:00 08/28/24 22:02 10 MG Laboratory Results Laboratory Tests 08/27/24 05:04 Urinalysis Test 08/26/24 20:55 Urine Color Light-yellow (Yellow) Urine Clarity Clear (Clear) Urine pH 5.0 (5.0-9.0) Urine Specific [place] 1.015 (1.001-1.035) Urine Protein Trace (Negative) H Urine Ketones Negative (Negative) Urine Blood Negative /uL (Negative) Urine Nitrite Negative (Negative) Urine Bilirubin Negative (Negative) Urine Urobilinogen Normal mg/dL (Negative) Urine Leukocyte Esterase Negative /uL (Negative) Urine RBC 1 /hpf (0 - 3) Urine Microscopic WBC 1 /HPF (0-3) Urine Squamous Epithelial Cells None seen /hpf (<5) Urine Bacteria None seen /hpf (None Seen) Urine Mucus Few (None Seen) Urine Glucose Normal mg/dL (Normal) Labs and/or images reviewed: Labs reviewed by me Assessment/Plan Assessment/Plan Acute on chronic respiratory failure likely due to COPD exacerbation Hyperbilirubinemia AFib with RVR Chronic back pain Chronic hip pain Chronic hypertension Plan: Continuing current management. Continuing with nebulizer. Continuing with IV Solu-Medrol Continuing With IV antibiotic Rocephin. Discharge planning. Discussed with patient and caregiver at bedside regarding to plan of care. This medical document was created using an electronic medical record system with [employer] direct computerized dictation system. Although this document has been carefully reviewed, there may still be some phonetic and typographical errors. These areas are purely typographical due to imperfections of the software programs, and do not reflect any compromise in the patient's medical care. Plan discussed with: Patient Date of Service: Aug 28, 2024 Billing Provider: CELIO CAGLE MD Common Visit Codes: [id number] INP/OBS CARE(HIGH) CELIO CAGLE MD Aug 28, 2024 23:39
[2024-08-29] VITALS (17 sets, daily range): BP systolic 112–166; BP diastolic 60–90; PULSE 53–80; RESP 16–19; TEMP 97.8–98; O2SAT 90–99
[2024-08-29] MEDS ORDERED: METH4PAK PO (11:58)
[2024-08-29] MEDS ORDERED: AZITTAB PO (11:58)
--- NOTE | 2024-08-29 12:02 | DVHDS2 ---
Discharge Summary Date of Admission Aug 26, 2024 at 11:17 Date of Discharge: Aug 29, 2024 Labs/Diagnostic Data: Laboratory Results Test 08/27/24 05:04 08/26/24 20:55 08/26/24 10:06 08/26/24 07:59 White Blood Count 8.4 10^3/uL (4.4-10.8) Red Blood Count 3.94 10^6/uL (4.5-5.90) Hemoglobin 12.8 g/dL (13.5-17.5) Hematocrit 37.2 % (41.0-53.0) Mean Corpuscular Volume 94.4 fL (80.0-100.0) Mean Corpuscular Hemoglobin 32.4 pg (28.0-32.0) Mean Corpuscular Hemoglobin Concent 34.3 g/dL (32.0-36.0) Red Cell Distribution Width 14.1 % (11.8-14.3) Platelet Count 149 10^3/uL (140-450) Mean Platelet Volume 8.9 fL (6.9-10.8) Neutrophils (%) (Auto) 95.0 % (37.0-80.0) Lymphocytes (%) (Auto) 2.5 % (10.0-50.0) Monocytes (%) (Auto) 2.4 % (0.0-12.0) Eosinophils (%) (Auto) 0.0 % (0.0-7.0) Basophils (%) (Auto) 0.1 % (0.0-2.0) Neutrophils # (Auto) 8.0 10 ^3/uL (1.6-8.6) Lymphocytes # (Auto) 0.2 10 ^3/uL (0.4-5.4) Monocytes # (Auto) 0.2 10 ^3/uL (0-1.3) Eosinophils # (Auto) 0 10 ^3/uL (0-0.8) Basophils # (Auto) 0 10 ^3/uL (0-0.2) Nucleated Red Blood Cells 0.1 % Sodium Level 138 mmol/L (136-145) Potassium Level 3.8 mmol/L (3.5-5.1) Chloride Level 104 mmol/L (98-107) Carbon Dioxide Level 23 mmol/L (20-31) Anion Gap 11 (5-15) Blood Urea Nitrogen 11 mg/dL (9-23) Creatinine 0.78 mg/dL (0.700-1.30) Glomerular Filtration Rate Calc 88 mL/min (>90) BUN/Creatinine Ratio 14.1 (10.0-20.0) Serum Glucose 137 mg/dL (74-106) Calcium Level 10.2 mg/dL (8.7-10.4) Total Bilirubin 1.3 mg/dL (0.2-1.0) Aspartate Amino Transferase (AST) 26 U/L (13-40) Alanine Aminotransferase (ALT) 24 U/L (7-40) Alkaline Phosphatase 81 U/L (46-116) Total Protein 6.7 g/dL (5.7-8.2) Albumin 4.0 g/dL (3.2-4.8) Urine Color Light-yellow (Yellow) Urine Clarity Clear (Clear) Urine pH 5.0 (5.0-9.0) Urine Specific [place] 1.015 (1.001-1.035) Urine Protein Trace (Negative) Urine Ketones Negative (Negative) Urine Blood Negative /uL (Negative) Urine Nitrite Negative (Negative) Urine Bilirubin Negative (Negative) Urine Urobilinogen Normal mg/dL (Negative) Urine Leukocyte Esterase Negative /uL (Negative) Urine RBC 1 /hpf (0 - 3) Urine Microscopic WBC 1 /HPF (0-3) Urine Squamous Epithelial Cells None seen /hpf (<5) Urine Bacteria None seen /hpf (None Seen) Urine Mucus Few (None Seen) Urine Glucose Normal mg/dL (Normal) Influenza Type A Antigen Negative (Negative) Influenza Type B Antigen Negative (Negative) Troponin I High Sensitivity 7 ng/L (</=54) Test 08/26/24 06:52 Prothrombin Time 11.3 sec (9.3-11.8) Prothrombin Time INR 1.07 (0.9-1.15) Activated Partial Thromboplast Time 25.7 SEC (24.5-34.5) D-Dimer, Quantitative 0.69 mg/L FEU (0.0-0.49) Magnesium Level 1.7 mg/dL (1.6-2.6) B-Type Natriuretic Peptide 67.08 pg/mL (0-100) Other Laboratory Tests 08/27/24 05:04 Brief Hx & Hospital Course: Final diagnoses: Acute hypoxic respiratory failure COPD exacerbation Afib CAD CLBP Prostate CA HTN 84 year old male was admitted for SOB, COPD exacerbation He was treated with O2, mednebs, steroids and IV antibiotics He is doing better DC home on steroids and Z-Gideon F/U with PCP JAUN Condition at Discharge: Stable Final Diagnosis/Problems List Acute hypoxic respiratory failure COPD exacerbation Afib CAD CLBP Prostate CA HTN Discharge Disposition: Home SNF Discharge Will this Physician continue t: No Discharge Instruct/Medications Diet: Cardiac 2g Na,low cholest Activity: No Restrictions, As Tolerated Follow Up/Referral: PCP JAUN Medications: Medrol dose pack Z-Gideon Resume home meds Discharge Statement: "Patient was advised to return to the ER or call 911 if any headaches, dizziness, shortness of breath, chest pain, abdominal pain, bleeding, fevers, or worsening of medical condition. Patient was counseled about treatment plan, medications, possible side effects, patientverbalized understanding. All questions were answered to the best of my ability. This discharge took greater then 30 minutes in planning, reviewing documentation, counseling the patient, and discussing with other team members." ASSESSMENT ASSESSMENT Assessment COPD exacerbation Afib CAD CLBP Prostate CA HTN Date of Service: Aug 29, 2024 Billing Provider: MARÍA KEYS MD Common Visit Codes: NOT BILLABLE MARÍA KEYS MD Aug 29, 2024 12:02
--- NOTE | 2024-08-29 20:51 | DVHINCON2 ---
Date of service: Aug 29, [address] Garner Reason for Consultation AE COPD History of Present Illness 84-year-old man history of chronic back pain, hip pain, hypertension, COPD, atrial fibrillation, CAD status post PTCA, appendectomy, code cholecystectomy, tonsillectomy who presented with shortness of breath, cough and a productive cough of yellow phlegm. He was receiving Eligard for his prostate cancer with urology institute [facility]. He was brought in by caregiver as he became more short of breath. He was not on home O2. He follows up with Cardiology. No nausea, vomiting, diarrhea constipation. No chest pain. No lightheadedness. Pulmonary consultation is called due to acute exacerbation of COPD. Review of systems: 14 point review of systems is negative unless otherwise noted above. Past medical history: Hypertension, COPD, atrial fibrillation, chronic back pain Past surgical history: Appendectomy, cholecystectomy, tonsillectomy , CAD status post PTCA Medications: Reviewed Allergies: No known drug allergies. Family history: No family history of premature CAD. No family history of lung disease Social history: Ex-smoker. Social alcohol use. Marijuana edibles. Lives alone. Family History: Patient reports no known family medical history. Allergies: Coded Allergies: NO KNOWN ALLERGIES (Unverified , 12/17/18) Home Meds Active Scripts Azithromycin (Zithromax Z-Gideon) 250 Mg Tab, 250 MG PO UD, #6 TAB Prov:MARÍA GARNER MD 08/29/24 Methylprednisolone (Medrol Dosepak) 4 Mg Gideon, 4 MG PO UD, #21 TAB UAD Prov:MARÍA GARNER MD 08/29/24 Reported Medications Tramadol Hcl (Tramadol Hcl) 50 Mg Tab, 50 MG PO, TAB 08/26/24 Temazepam (Temazepam) 30 Mg Cap, 1 CAP PO QPM, #30 CAP 1 Refill 08/26/24 Omeprazole (Gnp Omeprazole) 20 Mg Tab, 1 TAB PO DAILY, #90 TAB 1 Refill 08/26/24 Hydroxyzine Hcl (Hydroxyzine Hcl) 25 Mg Tab, 25 MG PO PRN for Insomnia, TAB 08/26/24 Lisinopril (Lisinopril) 5 Mg Tab, 5 MG PO DAILY for 30 Days, MG 08/26/24 Clopidogrel Bisulfate (CLOPIDOGREL) 75 Mg Tab, 75 MG PO DAILY for 30 Days, MG 1/31/25 Albuterol Sulfate (Albuterol Sulfate) 2 Mg Tab, NEB Q6HP PRN for SHORTNESS OF BREATH, VIAL 08/26/24 Tamsulosin Hcl (Tamsulosin Hcl) 0.4 Mg Cap, 2 DAILY 08/26/24 Amlodipine Besylate (Amlodipine Besylate) 5 Mg Tab, 1 DAILY 08/26/24 Atorvastatin Calcium (ATORVASTATIN CALCIUM) 40 Mg Tab, 1 DAILY 08/26/24 Metoprolol Tartrate (Lopressor) 25 Mg Tb, 1 08/26/24 Sildenafil Citrate (Sildenafil) 100 Mg Tab, 0.5-1 TAB PO DAILYPRN PRN 08/26/24 Discontinued Reported Medications Tamsulosin Hcl (Tamsulosin Hcl) 0.4 Mg Cap, 1 CAP PO DAILY, #30 CAP 5 Refills 08/26/24 Temazepam (Temazepam) 30 Mg Cap, 1 08/26/24 Vital Signs Vital Signs Date Time Temp Pulse Resp B/P (MAP) Pulse Ox O2 Delivery O2 Flow Rate FiO2 08/29/24 13:39 97.8 70 18 91 08/29/24 13:00 112/64 (80) 08/29/24 11:42 Room Air* 0 21 Physical Exam Gen.: Patient lying in bed in no apparent distress. He is breathing comfortably on room air. Head: Normocephalic, atraumatic Eyes: EOMI/PERRLA. Ears: Normal hearing. Normal anatomy. Neck/trachea: Trachea midline, supple. Nose: Normal external anatomy. Mouth: Moist mucous membranes. Chest: Fair air entry bilaterally. No wheezing or rhonchi. Cardio vascular: Positive S1, positive S2. Regular rate and rhythm. Abdomen: Positive bowel sounds in all 4 quadrants. Soft, non-tender, non- distended. : Deferred. Rectal: Deferred Skin: Warm, dry. Extremities: 2+ radial pulses bilaterally. No lower extremity edema. Neuro: Awake, alert, oriented x3. No gross motor or sensory deficits. Cranial nerves II through XII intact. Gait not assessed. Labs/Diagnostic Data Labs Test 08/27/24 05:04 08/26/24 20:55 08/26/24 10:06 08/26/24 07:59 Range/Units White Blood Count 8.4 4.4-10.8 10^3/uL Red Blood Count 3.94 L 4.5-5.90 10^6/uL Hemoglobin 12.8 L 13.5-17.5 g/dL Hematocrit 37.2 #L 41.0-53.0 % Mean Corpuscular Volume 94.4 80.0-100.0 fL Mean Corpuscular Hemoglobin 32.4 H 28.0-32.0 pg Mean Corpuscular Hemoglobin Concent 34.3 32.0-36.0 g/dL Red Cell Distribution Width 14.1 11.8-14.3 % Platelet Count 149 140-450 10^3/uL Mean Platelet Volume 8.9 6.9-10.8 fL Neutrophils (%) (Auto) 95.0 H 37.0-80.0 % Lymphocytes (%) (Auto) 2.5 L 10.0-50.0 % Monocytes (%) (Auto) 2.4 0.0-12.0 % Eosinophils (%) (Auto) 0.0 0.0-7.0 % Basophils (%) (Auto) 0.1 0.0-2.0 % Neutrophils # (Auto) 8.0 1.6-8.6 10 ^3/uL Lymphocytes # (Auto) 0.2 L 0.4-5.4 10 ^3/uL Monocytes # (Auto) 0.2 0-1.3 10 ^3/uL Eosinophils # (Auto) 0 0-0.8 10 ^3/uL Basophils # (Auto) 0 0-0.2 10 ^3/uL Nucleated Red Blood Cells 0.1 % Sodium Level 138 136-145 mmol/L Potassium Level 3.8 3.5-5.1 mmol/L Chloride Level 104 98-107 mmol/L Carbon Dioxide Level 23 20-31 mmol/L Anion Gap 11 5-15 Blood Urea Nitrogen 11 9-23 mg/dL Creatinine 0.78 0.700-1.30 mg/dL Glomerular Filtration Rate Calc 88 >90 mL/min BUN/Creatinine Ratio 14.1 10.0-20.0 Serum Glucose 137 H 74-106 mg/dL Calcium Level 10.2 8.7-10.4 mg/dL Total Bilirubin 1.3 H 0.2-1.0 mg/dL Aspartate Amino Transferase (AST) 26 13-40 U/L Alanine Aminotransferase (ALT) 24 7-40 U/L Alkaline Phosphatase 81 46-116 U/L Total Protein 6.7 5.7-8.2 g/dL Albumin 4.0 3.2-4.8 g/dL Urine Color Light-yellow Yellow Urine Clarity Clear Clear Urine pH 5.0 5.0-9.0 Urine Specific [place] 1.015 1.001-1.035 Urine Protein Trace H Negative Urine Ketones Negative Negative Urine Blood Negative Negative /uL Urine Nitrite Negative Negative Urine Bilirubin Negative Negative Urine Urobilinogen Normal Negative mg/dL Urine Leukocyte Esterase Negative Negative /uL Urine RBC 1 0 - 3 /hpf Urine Microscopic WBC 1 0-3 /HPF Urine Squamous Epithelial Cells None seen <5 /hpf Urine Bacteria None seen None Seen /hpf Urine Mucus Few None Seen Urine Glucose Normal Normal mg/dL Influenza Type A Antigen Negative Negative Influenza Type B Antigen Negative Negative Troponin I High Sensitivity 7 </=54 ng/L Test 08/26/24 06:52 Range/Units Prothrombin Time 11.3 9.3-11.8 sec Prothrombin Time INR 1.07 0.9-1.15 Activated Partial Thromboplast Time 25.7 24.5-34.5 SEC D-Dimer, Quantitative 0.69 H 0.0-0.49 mg/L FEU Magnesium Level 1.7 1.6-2.6 mg/dL B-Type Natriuretic Peptide 67.08 0-100 pg/mL Assessment Impression: Acute on chronic hypoxic respiratory failure secondary to acute exacerbation of COPD Acute exacerbation COPD Atrial fibrillation with RVR Chronic back pain Plan: Chest x-ray imaging report reviewed. No acute opacities, pleural effusion or pneumothorax. On room air Complete antibiotic course. Continue bronchodilators Continue Pulmicort Continue steroids. Transitioned to prednisone on discharge. GI prophylaxis-Protonix Dispo: Per hospitalist Patient is stable from pulmonary standpoint for discharge. Follow up in Pulmonary office within 1-2 weeks. Prognosis: Guarded given multiple comorbidities. Rest of plan per hospitalist and other consultants. Thank you Dr. Garner for allowing me to participate in this patient's care. Further recommendations will depend on patient's clinical course. Please do not hesitate to contact me if you have any questions or concerns. This medical document was created using an electronic medical record system with [employer] system. Although this document has been carefully reviewed, there may still be some phonetic and typographical errors. These areas are purely typographical due to imperfections of the software programs, and do not reflect any compromise in the patient's medical care. Plan discussed with: Other () DOMINGA JULIO MD Aug 29, 2024 20:51
== END 2024-08-29 14:35 | disposition home or self-care (01) | DRG 189 ==
LOC: ER 05:53 → EDBD 05:53 → TELE 11:17 → TELE-WESTW 15:38
PROVIDERS: ATTEND Internal Medicine Geriatric Medicine
DX: J96.01 Acute respiratory failure with hypoxia (principal); J44.1 Chronic obstructive pulmonary disease with (acute) exacerbation; I48.20 Chronic atrial fibrillation, unspecified; I25.10 Atherosclerotic heart disease of native coronary artery without angina pectoris; I10 Essential (primary) hypertension; E80.6 Other disorders of bilirubin metabolism; G89.29 Other chronic pain; Z90.49 Acquired absence of other specified parts of digestive tract; Z87.891 Personal history of nicotine dependence; Z85.46 Personal history of malignant neoplasm of prostate; Z98.61 Coronary angioplasty status; Z95.1 Presence of aortocoronary bypass graft
CPT/HCPCS: 36415; 71045; 80053; 81001; 83735; 83880; 84484; 85025; 85379; 85610; 85730; 87804; 93005; 93306; 94640; 96365; 96367; 96375; G0378; J3490